=== PATIENT | female | born 1990 | race Caucasian/White ===

== ENCOUNTER 2021-06-12 23:12 | Emergency (ER) | payer BC ==
[~2021-06-12] VITALS: Ht 188 cm; Wt 92.7 kg
[2021-06-12 23:20] VITALS: TEMP 97.2
[2021-06-13 00:11] VITALS: BP 134/64; PULSE 62
== END 2021-06-13 00:11 | disposition home or self-care (01) ==
LOC: COL.ER 23:12
DX: Z04.3 Encounter for examination and observation following other accident (principal); V43.52XA Car driver injured in collision with other type car in traffic accident, initial encounter